=== PATIENT | female | born 1970 | race Two or more races ===

== ENCOUNTER 2016-12-25 15:10 | Emergency (ER) | payer MEDICAID, OTHER ==
[2016-12-25 15:19] VITALS: RESP 20
--- NOTE | 2016-12-25 15:32 | EDPHY ---
H & P Time Seen by Provider: 12/25/16 15:24 HPI/ROS: CHIEF COMPLAINT: cough HISTORY OF PRESENT ILLNESS: Patient is a 46-year-old female with a history of diabetes who presents emergency department with cough and fever. Her symptoms started 2 days ago. Her cough is productive of green sputum. She has mild discomfort in her chest when she coughs. She has had no nausea or vomiting. No leg pain or swelling. Patient has had intermittent fever and is taking ibuprofen. REVIEW OF SYSTEMS: My complete review of systems is negative except as mentioned in the HPI. Past Medical/Surgical History: Includes diabetes Past surgical history: Includes vaginal surgery Social history: The patient does not smoke Smoking Status: Never smoked Physical Exam: Vitals noted. Temperature 38. GENERAL: Well-appearing, in no acute distress, alert. HEENT: Eyes normal to inspection, normal pharynx, no signs of dehydration. NECK: No thyromegaly, no lymphadenopathy, supple. RESPIRATORY: coarse breath sounds throughout. No rales or rhonchi. No wheezing. CVS: Regular rate and rhythm, no rubs, murmurs, or gallops. ABDOMEN: Soft, nontender, nondistended, no organomegaly. BACK: Normal to inspection, no CVA tenderness. SKIN: Normal color, no rash, warm, dry. No pallor. EXTREMITIES: No pedal edema, no calf tenderness, no Homans sign or cords, no joint swelling. NEURO/PSYCH: Alert and oriented, normal mood and affect, normal motor sensory exam. Constitutional: Initial Vital Signs Temperature (C) 38.1 C 12/25/16 15:14 Heart Rate 96 12/25/16 15:14 Respiratory Rate 20 12/25/16 15:14 Blood Pressure 128/90 H 12/25/16 15:14 O2 Sat (%) 98 12/25/16 15:14 O2 Delivery Mode Room Air Allergies/Adverse Reactions: No Known Allergies Allergy (Unverified 09/13/16 15:14) Home Medications: Medication Instructions Recorded metFORMIN HCL [Glucophage 500 mg 500 mg PO BIDMEAL 09/13/16 (*)] Albuterol 5 mg/ml INH [Proventil] 1 puffs IH PRN PRN 09/14/16 Albuterol Hfa Anes Only [Proair 200 puffs IH Q6 #0 mdi 12/25/16 Hfa Icu (*)] Azithromycin 250 mg PO DAILY #4 tablet 12/25/16 Hydrocodone/APAP 5/325 [[place] 1 - 2 tab PO Q4 #13 tab 12/25/16 5325 (RX)] Medical Decision Making ED Course/Re-evaluation: In the emergency department I discussed possible etiologies with the patient. I answered all her questions. She is noted to be febrile in has a cough with productive green sputum. She is given azithromycin 500 mg orally. She will be given azithromycin prescription upon discharge. She was also given albuterol inhaler and hydrocodone for cough. Differential Diagnosis: My differential includes but is not limited to bronchitis, pneumonia, empyema, bacteremia, sepsis, CHF Departure - Departure Disposition: Home, Routine, Self-Care Clinical Impression: Acute bronchitis Qualifiers: Bronchitis organism: unspecified organism Qualifier Code: (J20.9) Acute bronchitis, unspecified Condition: Good Instructions: Acute Bronchitis (ED) Additional Instructions: Return with increasing shortness of breath, fever, or any other concerns. Take your antibiotics as directed. Referrals: [facility] [Outside] - 5-7 days, call for appt. Prescriptions: Azithromycin 250 mg PO DAILY #4 tablet Albuterol Hfa Anes Only [Proair Hfa Icu (*)] 200 puffs IH Q6 #0 mdi
[2016-12-25] MEDS ORDERED: AZITHROMYCIN 250 MG TAB PO ONE (15:37)
[2016-12-25 16:03] VITALS: BP 135/98; PULSE 100; TEMP 98.6; O2SAT 97
== END 2016-12-25 16:01 | disposition home or self-care (01) ==
DX: J20.9 Acute bronchitis, unspecified (principal); E11.9 Type 2 diabetes mellitus without complications

== ENCOUNTER 2016-12-25 20:47 | Emergency (ER) | payer MEDICAID, OTHER ==
[2016-12-25] MEDS ORDERED: ACETAMINOPHEN 325 MG TAB PO ONE (21:25)
[2016-12-25] MEDS ORDERED: NS 1,000 ML IV ONE (21:26)
[2016-12-25] MEDS ORDERED: IBUPROFEN 600 MG TAB PO ONE ×2 (21:43→21:44)
--- NOTE | 2016-12-25 21:49 | DX ---
Chest, Two Views at 2115 hours History: Cough, fever. PAIN Comparison: None. Findings: Cardiac silhouette is within normal range. Bilateral peribronchial thickening. No pneumonia , congestive heart failure, pleural effusion, or pneumothorax. Impression: 1. Bronchitis. 2. No focal pneumonia.
--- NOTE | 2016-12-25 22:29 | EDPHY ---
H & P Stated Complaint: has flu-now with chest pain/SOB/nausea/fever Time Seen by Provider: 12/25/16 21:16 HPI/ROS: CHIEF COMPLAINT: cough, fever, nasal congestion, body aches HISTORY OF PRESENT ILLNESS: 46-year-old female presents emergency department complaining of cough, fever, body aches that started yesterday. Patient was seen in the emergency department earlier today and diagnosed with a bronchitis. She was started on a Z-J Luis, given an albuterol inhaler and a prescription for [place]. Patient comes back reporting she is not feeling any better. Patient has not taken any ibuprofen. No abdominal pain. No nausea, vomiting or diarrhea. Patient has a history of asthma, uses an albuterol inhaler only when she gets sick. She has diabetes and takes metformin. Patient denies chest pain. REVIEW OF SYSTEMS: A comprehensive 10 point review of systems is otherwise negative aside from elements mentioned in the history of present illness. Source: Patient, Family Exam Limitations: Language barrier - Personal History LMP (Females 10-55): Irregular Current Tetanus Diphtheria and Acellular Pertussis (TDAP): Unsure - Medical/Surgical History Hx Asthma: Yes Hx Chronic Respiratory Disease: No Hx Diabetes: Yes Hx Cardiac Disease: No Hx Renal Disease: No Hx Cirrhosis: No Hx Alcoholism: No Hx HIV/AIDS: No Hx Splenectomy or Spleen Trauma: No Other PMH: Vaginal surgery (D&C r/t hemmorhage). seasonal allergies sets off asthma (uses inhaler-albuterol PRN). Pt on metformin for "pre diabetes" dx - Social History Smoking Status: Never smoked - Physical Exam Exam: General: Alert, nontoxic. ENT: Tympanic membranes clear, external auditory canal, external ear and surrounding soft tissue including over the mastoid unremarkable. Nasopharynx is injected, there is rhinorrhea. Oropharynx with erythema, no edema. There is no exudate. No tonsillar hypertrophy. No asymmetry. The uvula is midline. No elevation of tongue. There is no hoarseness. No drooling, patient has good control of their oral secretions. No trismus. No stridor. Cardiac: Tachycardic rate and regular rhythm. Respiratory: Lungs clear to auscultation bilaterally. Neurological: no meningismus. Skin: No rashes. Constitutional: Initial Vital Signs Temperature (C) 37.6 C 12/25/16 20:51 Heart Rate 102 H 12/25/16 20:51 Respiratory Rate 24 H 12/25/16 20:51 Blood Pressure 145/95 H 12/25/16 20:51 O2 Sat (%) 96 12/25/16 20:51 O2 Delivery Mode Room Air Allergies/Adverse Reactions: No Known Allergies Allergy (Unverified 12/25/16 20:49) Home Medications: Medication Instructions Recorded metFORMIN HCL [Glucophage 500 mg 500 mg PO BIDMEAL 09/13/16 (*)] Albuterol 5 mg/ml INH [Proventil] 1 puffs IH PRN PRN 09/14/16 Albuterol Hfa Anes Only [Proair 200 puffs IH Q6 #0 mdi 12/25/16 Hfa Icu (*)] Azithromycin 250 mg PO DAILY #4 tablet 12/25/16 Fluticasone Nasal [Flonase Nasal 1 sprays NASAL DAILY #1 mdi 12/25/16 [place] (RX)] Hydrocodone/APAP 5/325 [[place] 1 - 2 tab PO Q4 #13 tab 12/25/16 5/325 (RX)] Medical Decision Making - Diagnostics Imaging: Chest x-ray independently reviewed by me Impression: 1. Bronchitis. 2. No focal pneumonia. Dictated By: Foster Sharp ED Course/Re-evaluation: IV established, patient is given 1 L of normal saline. She is given 600 mg of ibuprofen. Chest x-ray obtained showing a bronchitis, no evidence of pneumonia. Influenza swab is negative. Patient is nontoxic appearing, lungs are clear to auscultation, room air oxygen saturations are 96%. Patient is feeling a little better after 600 mg of ibuprofen and 1 L of normal saline. She will be discharged with symptomatic treatment. She is given return precautions for chest pain, shortness of breath , other questions or concerns. Differential Diagnosis: Diagnoses considered but not limited to sinusitis, viral URI, viral syndrome, influenza, bronchitis, pneumonia - Data Points Laboratory Results: 12/25/16 22:30 Influenza Typ A,B (DFA) NEGATIVE FOR FLU (NEGATIVE) Medications Given: Discontinued Medications Sodium Chloride (Ns) 1,000 mls @ 0 mls/hr IV EDNOW ONE PRN Reason: [place] Stop: 12/25/16 21:27 Last Admin: 12/25/16 21:27 Dose: 1,000 mls Ibuprofen (Motrin) 600 mg PO EDNOW ONE Stop: 12/25/16 21:45 Last Admin: 12/25/16 21:47 Dose: 600 mg Departure - Departure Disposition: Home, Routine, Self-Care Clinical Impression: Viral syndrome, Acute bronchitis Condition: Good Instructions: Viral Syndrome (ED), Acute Bronchitis (ED) Additional Instructions: Take over the counter Tylenol and ibuprofen as instructed. Take 650 mg of Tylenol every 8 hours and 600 mg of ibuprofen every 8 hours, alternate these every 4 hours. Use your albuterol inhaler 2 puffs every 4 hours as needed for cough, use they Flonase nasal spray is 1 spray in each nostril daily. Rest, drink plenty of fluids. Use a saline nasal rinse, humidifier at night, hot steam showers. Return to the ED for difficulty breathing, chest pain, other concerns. You may also take [id number] Sudafed as directed to help dry up your secretions. Referrals: [facility] [Outside] - As per Instructions Prescriptions: Fluticasone Nasal [Flonase Nasal [place] (RX)] 1 sprays NASAL DAILY #1 mdi Print Language: Khmer
[2016-12-25 23:17] VITALS: BP 123/79; PULSE 100; RESP 16; TEMP 98.4; O2SAT 94
== END 2016-12-25 23:16 | disposition home or self-care (01) ==
DX: J20.9 Acute bronchitis, unspecified (principal); B34.9 Viral infection, unspecified; J45.909 Unspecified asthma, uncomplicated; E11.9 Type 2 diabetes mellitus without complications